=== PATIENT | female | born 1995 | race Two or more races ===

== ENCOUNTER → 2017-12-25 | Outpatient (CLI) | payer OTHER | END | disposition home or self-care (01) | LOC: US 15:13 | DX: O32.1XX0 Maternal care for breech presentation, not applicable or unspecified (principal); O09.92 Supervision of high risk pregnancy, unspecified, second trimester; O26.842 Uterine size-date discrepancy, second trimester; Z3A.19 19 weeks gestation of pregnancy | CPT/HCPCS: 76805 ==

== ENCOUNTER → 2018-01-10 | Outpatient (CLI) | payer OTHER | END | disposition home or self-care (01) | LOC: US 07:07 | DX: Z34.82 Encounter for supervision of other normal pregnancy, second trimester (principal); Z3A.21 21 weeks gestation of pregnancy | CPT/HCPCS: 76805 ==

== ENCOUNTER 2018-01-26 04:26 | Emergency (ER) | payer OTHER ==
[2018-01-26 04:49] LABS: BILIRUBIN,URINE NEGATIVE (NEG); CLARITY,URINE CLEAR; COLOR,URINE YELLOW; GLUCOSE,URINE NEGATIVE (NEG); NITRITE,URINE NEGATIVE (NEG); PH,URINE 6.5; PROTEIN,URINE NEGATIVE (NEG-TRACE); UROBILINOGEN,URINE 0.2 mg/dL (0.2 mg/dL)
[2018-01-26 04:57] LABS: AMORPHOUS SEDIMENT,UR PRESENT /HPF; BACTERIA,URINE FEW /HPF (0-FEW); RBC,URINE 0 /HPF (0-2); SQUAMOUS EPITHELIAL CELL,UR FEW /LPF; WBC,URINE OCC /HPF (0-4)
== END 2018-01-26 06:06 | disposition home or self-care (01) ==
LOC: ER 04:26
DX: O26.892 Other specified pregnancy related conditions, second trimester (principal); R07.89 Other chest pain; Z3A.24 24 weeks gestation of pregnancy
CPT/HCPCS: 81001; 93005; 99285-25

== ENCOUNTER → 2018-03-16 | Outpatient (CLI) | payer OTHER | END | disposition home or self-care (01) | LOC: KCIC US 07:51 | DX: K76.0 Fatty (change of) liver, not elsewhere classified (principal); E01.0 Iodine-deficiency related diffuse (endemic) goiter; R16.2 Hepatomegaly with splenomegaly, not elsewhere classified | CPT/HCPCS: 76700 ==

== ENCOUNTER 2018-03-17 23:44 | Observation (INO) | payer OTHER ==
[2018-03-18 00:26] LABS: BILIRUBIN,URINE NEGATIVE (NEG); CLARITY,URINE CLEAR; COLOR,URINE YELLOW; GLUCOSE,URINE NEGATIVE (NEG); NITRITE,URINE NEGATIVE (NEG); PROTEIN,URINE NEGATIVE (NEG-TRACE); UROBILINOGEN,URINE 0.2 mg/dL (0.2 mg/dL)
[2018-03-18 00:33] LABS: BACTERIA,URINE MANY /HPF (0-FEW); BARBITURATES NEG (NEG); BENZODIAZEPINES NEG (NEG); CANNABINOIDS NEG (NEG); COCAINE NEG (NEG); METHADONE NEG (NEG); OPIATES NEG (NEG); PHENCYCLIDINE NEG (NEG); RBC,URINE OCC /HPF (0-2); SQUAMOUS EPITHELIAL CELL,UR MANY /LPF
[2018-03-18 00:37] LABS: AMPHETAMINE/METHAMPHETAMINE NEG (NEG); ETHANOL, URINE NEG (NEG)
[2018-03-18] MEDS: TERBUTALINE 1 MG/ML VIAL. SQ (01:23)
[2018-03-18] MEDS: IV RINGERS,LACTATED 1000ML 1,000 ML IV ×2 (01:24→02:26)
[2018-03-18] MEDS ORDERED: IV RINGERS,LACTATED 1000ML 1,000 ML IV (02:30)
== END 2018-03-18 06:00 | disposition home or self-care (01) ==
LOC: 3 SO LND 23:44
DX: O62.9 Abnormality of forces of labor, unspecified (principal); Z3A.31 31 weeks gestation of pregnancy
CPT/HCPCS: 80307; 81001; 87086; 96360; 96361; 96372; G0378; G0379; J3105; J7120

== ENCOUNTER 2018-05-07 14:32 | Inpatient (IN) | payer OTHER ==
[2018-05-07 15:21] LABS: NEG OBC AMNIO NEG; POS OBC AMNIO POS
[2018-05-07 15:22] LABS: AMNIO PT POSITIVE
[2018-05-07] MEDS ORDERED: BUTORPHANOL 2 MG/ML VIAL. IV (16:00)
[2018-05-07] MEDS ORDERED: ACETAMINOPHEN 325 MG TABLET. PO (16:00)
[2018-05-07] MEDS ORDERED: ONDANSETRON PF 4 MG/2 ML VIAL. IV ×2 (16:00→20:30)
[2018-05-07] MEDS ORDERED: OXYTOCIN 30 UNIT/500 ML PREMIX 500 ML IV (16:00)
[2018-05-07] MEDS ORDERED: IBUPROFEN 800 MG TABLET. PO (16:00)
[2018-05-07] MEDS ORDERED: 0.9 % SODIUM CHLORIDE 10 ML DISP.SYRIN. IV (16:00)
[2018-05-07 16:18] LABS: ADD MAN DIFF? NO
[2018-05-07] MEDS: OXYTOCIN 30 UNIT/500 ML PREMIX 500 ML IV (16:26)
[2018-05-07] MEDS: IV RINGERS,LACTATED 1000ML 1,000 ML IV ×2 (16:26→20:46)
[2018-05-07] MEDS: PENICILLIN G K 5,000,000 UNIT in IV DEXTROSE 5% 100ML 100 ML IV (16:31)
[2018-05-07 16:41] LABS: BASO % 0 % (0-3); EOS # 0.1 x10^3/uL (0.0-0.7); EOS % 1 % (0-3); HEMATOCRIT 41.1 % (36.0-47.0); HEMOGLOBIN 14.1 g/dL (12.0-15.5); LYMPH # 1.5 x10^3/uL (1.0-4.8); LYMPH % 13 % (24-48); MEAN CORPUSCULAR HEMOGLOBIN 30 pg (25-35); MEAN CORPUSCULAR HGB CONC 34 g/dL (31-37); MEAN CORPUSCULAR VOLUME 86 fL (79-100); MONO # 0.8 x10^3/uL (0.0-1.1); MONO % 7 % (0-9); NEUT # 9.2 x10^3uL (1.8-7.7); NEUT % 79 % (31-73); PLATELET COUNT 188 x10^3/uL (140-400); RED BLOOD COUNT 4.77 x10^6/uL (3.50-5.40); RED CELL DISTRIBUTION WIDTH 14.3 % (11.5-14.5); WHITE BLOOD COUNT 11.7 x10^3/uL (4.0-11.0)
[2018-05-07 16:46] LABS: ANION GAP 12 (6-14); BLOOD UREA NITROGEN 10 mg/dL (7-20); BUN/CREATININE RATIO 17 (6-20); CALCIUM 9.6 mg/dL (8.5-10.1); CARBON DIOXIDE 21 mmol/L (21-32); CHLORIDE 104 mmol/L (98-107); CREATININE 0.6 mg/dL (0.6-1.0); GLUCOSE 87 mg/dL (70-99); POTASSIUM 3.7 mmol/L (3.5-5.1); SODIUM 137 mmol/L (136-145)
[2018-05-07 16:55] LABS: ALBUMIN 2.8 g/dL (3.4-5.0); ALBUMIN/GLOBULIN RATIO 0.7 (1.0-1.7); ALK PHOS 177 U/L (46-116); ALT (SGPT) 24 U/L (14-59); AST (SGOT) 17 U/L (15-37); LACTATE DEHYDROGENASE 215 U/L (81-234); TOTAL BILIRUBIN 0.2 mg/dL (0.2-1.0); TOTAL PROTEIN 7.1 g/dL (6.4-8.2); URIC ACID 3.5 mg/dL (2.6-6.0)
[2018-05-07] MEDS: fentaNYL PF VIAL 100 MCG/2 ML VIAL IV (19:41)
[2018-05-07] MEDS: PENICILLIN G K 2,500,000 UNIT in IV DEXTROSE 5% 50 ML IV (20:23)
[2018-05-07] MEDS ORDERED: NALOXONE 0.4 MG/ML VIAL. IV (20:30)
[2018-05-07] MEDS: ROPIVacaine 0.2% PF 10 ML VIAL. EPI (20:30)
[2018-05-07] MEDS ORDERED: ePHEDrine PF IN SALINE 50 MG/5 ML DISP.SYRIN IV (20:30)
[2018-05-07] MEDS ORDERED: ROPIVacaine 0.2% IN 0.9%NACL PF 40 MG/20 ML DISP.SYRIN. ×2 (20:32→21:00)
[2018-05-07] MEDS: fentaNYL PF VIAL 100 MCG/2 ML VIAL EPI (20:54)
[2018-05-07] MEDS: L&D EPIDURAL SYRINGE 50 ML EP (20:56)
[2018-05-08] MEDS ORDERED: HYDROCORTISONE 1% TOPICAL OINTMENT 30GM TUBE. TP (00:15)
[2018-05-08] MEDS ORDERED: MMR per PROTOCOL. MC (00:15)
[2018-05-08] MEDS ORDERED: diphenhydrAMINE HCL 25 MG CAPSULE PO (00:15)
[2018-05-08] MEDS ORDERED: MAGNESIUM HYDROXIDE 2,400 MG/30 ML ORAL.SUSP. PO (00:15)
[2018-05-08] MEDS ORDERED: SIMETHICONE 80 MG TAB.CHEW PO (00:15)
[2018-05-08] MEDS ORDERED: 0.9 % SODIUM CHLORIDE 10 ML DISP.SYRIN. IV (00:15)
[2018-05-08] MEDS ORDERED: ACETAMINOPHEN 325 MG TABLET. PO (00:15)
[2018-05-08] MEDS ORDERED: PHENYLEPH/MINERAL OIL/PETROLAT RECTAL OINTMENT 28GM TUBE. RC (00:15)
[2018-05-08] MEDS ORDERED: ZOLPIDEM 5 MG TABLET. PO (00:15)
[2018-05-08] MEDS ORDERED: OXYTOCIN 30 UNIT/500 ML PREMIX 500 ML IV (00:15)
[2018-05-08] MEDS ORDERED: MAG HYDROX/ALUMINUM HYD/SIMETH 30 ML ORAL.SUSP PO (00:15)
[2018-05-08] MEDS: PENICILLIN G K 2,500,000 UNIT in IV DEXTROSE 5% 50 ML IV ×2 (00:30→03:34)
[2018-05-08] MEDS: BENZOCAINE 20% TOPICAL AEROSOL SPRAY 57GM CAN. TP (02:24)
[2018-05-08] MEDS: LIDOCAINE 1% PF 30 ML VIAL. INJ (02:25)
[2018-05-08] MEDS: IV RINGERS,LACTATED 1000ML 1,000 ML IV (06:06)
[2018-05-08] MEDS: DOCUSATE SODIUM 100 MG CAPSULE. PO ×2 (09:12→17:10)
[2018-05-08] MEDS: FERROUS SULFATE 325 MG TABLET. PO (09:13)
[2018-05-08] MEDS: IBUPROFEN 800 MG TABLET. PO (12:54)
[2018-05-08] MEDS: oxyCODONE/APAP 5/325 1 TAB TABLET PO (23:40)
[2018-05-09 04:19] LABS: ADD MAN DIFF? NO
[2018-05-09] MEDS: oxyCODONE/APAP 5/325 1 TAB TABLET PO ×2 (04:19→09:29)
[2018-05-09] MEDS: IBUPROFEN 800 MG TABLET. PO ×2 (04:19→15:54)
[2018-05-09 04:29] LABS: BASO # 0.1 x10^3/uL (0.0-0.2); BASO % 0 % (0-3); EOS # 0.2 x10^3/uL (0.0-0.7); EOS % 2 % (0-3); HEMATOCRIT 39.4 % (36.0-47.0); HEMOGLOBIN 13.4 g/dL (12.0-15.5); LYMPH # 2.5 x10^3/uL (1.0-4.8); LYMPH % 21 % (24-48); MEAN CORPUSCULAR HEMOGLOBIN 30 pg (25-35); MEAN CORPUSCULAR HGB CONC 34 g/dL (31-37); MEAN CORPUSCULAR VOLUME 87 fL (79-100); MONO # 0.9 x10^3/uL (0.0-1.1); MONO % 7 % (0-9); NEUT # 8.6 x10^3uL (1.8-7.7); NEUT % 70 % (31-73); PLATELET COUNT 158 x10^3/uL (140-400); RED BLOOD COUNT 4.51 x10^6/uL (3.50-5.40); RED CELL DISTRIBUTION WIDTH 14.4 % (11.5-14.5); WHITE BLOOD COUNT 12.3 x10^3/uL (4.0-11.0)
[2018-05-09] MEDS ORDERED: FERROUS SULFATE 325 MG TABLET. PO (08:00)
[2018-05-09] MEDS: DOCUSATE SODIUM 100 MG CAPSULE. PO (09:22)
== END 2018-05-09 18:30 | disposition home or self-care (01) | DRG 775 ==
LOC: 3 SO LND 14:32 → 3 NORTH 05-08 02:35
PROC: 10E0XZZ Delivery of Products of Conception, External Approach (ICD-10-PCS; principal; 2018-05-08)
PROC: 0TQD0ZZ Repair Urethra, Open Approach (ICD-10-PCS; 2018-05-08)
PROC: 3E0R3BZ Introduction of Anesthetic Agent into Spinal Canal, Percutaneous Approach (ICD-10-PCS; 2018-05-08)
PROC: 00HU33Z Insertion of Infusion Device into Spinal Canal, Percutaneous Approach (ICD-10-PCS; 2018-05-08)
DX: O69.81X0 Labor and delivery complicated by cord around neck, without compression, not applicable or unspecified (principal); Z3A.38 38 weeks gestation of pregnancy; Z37.0 Single live birth; O71.82 Other specified trauma to perineum and vulva
CPT/HCPCS: 36415; 80053; 83615; 84112; 84550; 85025; 86592; 86850; 86900; 86901; G0378; J2540; J2590; J2795; J3010; J7120